=== PATIENT | female | born 1960 | race Caucasian/White ===

== ENCOUNTER → 2016-12-04 | Outpatient (CLI) | payer BC ==
[~2016-12-04] MED LIST: FOLVITE-DPS1 MG PO; PEPCID DPS20 MG PO; THERAPEUTIC MUL1 TAB PO
== END | disposition home or self-care (01) ==
LOC: RAD.S 08:46
DX: D64.9 Anemia, unspecified (principal); D72.819 Decreased white blood cell count, unspecified; N28.89 Other specified disorders of kidney and ureter

== ENCOUNTER → 2016-12-21 | Outpatient (CLI) | payer BC | END | disposition home or self-care (01) | LOC: RAD.S 08:30 → ONCM 01-10 09:15 → RAD.S 01-10 09:15 | DX: N28.89 Other specified disorders of kidney and ureter (principal); K63.89 Other specified diseases of intestine; D72.819 Decreased white blood cell count, unspecified; D64.9 Anemia, unspecified ==